=== PATIENT | female | born 1955 | race Caucasian/White ===

== ENCOUNTER 2020-01-14 12:39 | Outpatient (REF) | payer OTHER, SELFPAY ==
[2020-01-14 14:13] LABS: Vitamin B12 326 pg/mL (200-900)
== END 2020-01-14 12:40 | disposition home or self-care (01) ==
LOC: HO.LAB 12:39
PROVIDERS: PCP Internal Medicine; Visit Provider Psychiatry & Neurology Neurology
DX: G31.84 Mild cognitive impairment of uncertain or unknown etiology (principal)
CPT/HCPCS: 82607

== ENCOUNTER 2024-10-13 12:43 | Emergency (ER) | payer BC, SELFPAY ==
--- NOTE | ~2024-10-13 | CT_ITS ---
EXAMINATION: CT HEAD AND FACIAL BONES WITHOUT CONTRAST CLINICAL INFORMATION: Left periorbital hematoma after trauma. Rule out fracture. COMPARISON: CT head 10/16/2008. TECHNIQUE: Contiguous axial imaging was performed from the skull base to vertex, as well as the maxillofacial bones/mandible without intravenous administration of contrast. Multiplanar reformatted imaging was constructed from the axial data set. This CT examination was performed using dose optimization techniques as appropriate, variously including the following: *Automated exposure control *Adjustment of mA and/or kV according to patient size (this includes techniques or standardized protocols for targeted exams where dose is matched to indication/reason for exam; i.e. extremities or head) *Use of iterative reconstruction technique CT HEAD: There is a small right parafalcine subdural hematoma abutting the anterior falx measuring 6 mm in maximal thickness. This involves the anterior one half of the falx. No significant associated mass effect, sulcal effacement, or midline shift. There is trace left frontal subarachnoid hemorrhage, barely perceptible but present. There is a small amount of subarachnoid hemorrhage in the right sylvian fissure. There is no additional intracranial hemorrhage or extra-axial fluid collection. No CT evidence of acute territorial infarct. Ventricles, sulci, and cisterns are normal in size and configuration for patient age. No hydrocephalus. Negative hyperdense MCA sign. Negative insular ribbon sign. Mild supratentorial periventricular white matter hypodensities in keeping with small vessel ischemic changes. Vertebrobasilar dolichoectasia. Calcification of the carotid siphons and V4 segments of the ICAs. Normal pituitary. Globes and orbital contents image normally. There is left periorbital and left frontal scalp soft tissue swelling with a small left frontal scalp hematoma. The calvarium and skull base are intact without fracture. CT MAXILLOFACIAL BONES: The mandible is intact without fracture. The TM joints are normally oriented. The nasal bones, nasal process, maxilla, orbits, zygomatic arches, pterygoid plates, and sphenoid bone are intact without fracture. No significant nasal septal deviation. Paranasal sinuses are normally pneumatized throughout. No paranasal sinus fractures. The mastoids and tympanic cavities are normally aerated. Imaged maxillofacial/neck soft tissues appear normal. CT/CT facial bones wo IV con IMPRESSION: CT HEAD: 1. Small, 6 mm right parafalcine subdural hematoma involving the anterior one half of the falx. No associated mass effect or midline shift. 2. Trace subarachnoid hemorrhage in the left frontal sulci and small amount in the right sylvian fissure. 3. No gross hypoattenuating contusive injury. 4. No calvarial or skull base fracture. CT FACIAL BONES: 1. There is no maxillofacial or orbital fracture identified. 2. There is left periorbital preseptal soft tissue swelling and a small scalp hematoma overlying the left frontal bone. This critical result was discussed with Dr. Genao of the [facility] at 3:34 PM, 10/13/2024. It was ascertained that the content and urgency of the report was understood at the time of direct communication. Electronically signed by: Grady Swann MD 10/13/2024 03:40 PM EDT
--- NOTE | ~2024-10-13 | CT_ITS ---
EXAMINATION: CT CERVICAL SPINE WITHOUT CONTRAST CLINICAL INFORMATION: Trauma COMPARISON: None available. TECHNIQUE: Axial imaging was performed from the base of the skull through T2 without IV contrast. Coronal and sagittal reformatted images were generated from the original axial data set. ALARA: The examination used one or more of the following radiation dose reduction techniques: Automated exposure control, iterative reconstruction, and/or adjustment of mA and/or KV. DLP: 1141 mGY*cm FINDINGS: There is no prevertebral soft tissue edema. There is reversal cervical lordosis. There are osteophytes involving left greater than right atlanto-occipital articulation. C1-C2: There are severe degenerative change of the anterior C1-C2 articulation with chronic bony fragment and abutment with the base of clivus. There is 3 mm gap through the anterior C1 ring appears mostly corticated. C2-C3: Mild to moderate facet osteoarthritis C3-C4: There is grade 1 anterolisthesis. Mild to moderate facet osteoarthritis C4-C5: Severe degenerative endplate changes with severe disc space narrowing and endplate osteophytes. There are uncovertebral osteophytes. Mild facet degeneration. C5-C6: There is severe disc space narrowing with degenerative endplate changes and endplate and uncovertebral osteophytes. There is mild facet degeneration. C6-7: There is severe disc space narrowing with degenerative changes and endplate osteophytes. There are uncovertebral osteophytes. Minimal facet arthropathy. C7-T1: There is minimal grade 1 anterolisthesis and moderate bilateral facet osteoarthritis. There is mild centrilobular emphysema in the lung apexes. Soft tissues are unremarkable. CT/CT cervical spine wo IV con IMPRESSION: Anterior C1 fracture, probably chronic with nonunion. No other sign of C1 fracture. Correlate with history. There is extensive degenerative changes at the anterior C1-C2 articulation, chronic abutment with clivus, and no soft tissue swelling. Reversal cervical lordosis and severe degenerative disc disease C4-5, C5-6, and C6-7. Electronically signed by: Aravind Morales MD 10/13/2024 03:22 PM EDT
[2024-10-13 12:51] VITALS: BP 133/84; BP 137/88; PULSE 100; PULSE 90; RESP 14; TEMP 36.5; O2SAT 100; O2SAT 98; BMI 19.3
[2024-10-13 13:13] LABS: MANUAL DIFF FLAG NO
--- NOTE | 2024-10-13 13:16 | PC.NURSE ---
patient presents to the ED after sustaining a fall last night, states she does not know of she loss consciousness. patient states she was able to get herself off the floor and took tylenol before going back to bed. patient noted to have left sided periorbital hematoma, patient unable to open left eye. patient is on blood thinners, denies any pain. patient states she took tylenol prior to EMS coming. patient is alert and oriented x4.
[2024-10-13 13:17] LABS: Hematocrit 37.4 % (37.0-47.0); Hemoglobin 12.8 g/dl (12.0-16.0); Imm Gran Abs Auto 0.02 X10*3/uL (0.00-0.03); Imm Gran Pct Auto 0.2 % (0.0-0.4); Lymphocytes Absolute Auto 1.0 X10*3/uL (1.2-4.9); Mean Corpuscular HGB Conc 34.2 g/dl (31.0-35.0); Mean Corpuscular Hemoglobin 31.1 pg (27.0-33.0); Mean Corpuscular Volume 91.0 fL (80.0-98.0); NRBC Abs Auto 0.000 X10*3/uL (0.0-0.012); NRBC Pct Auto 0.0 /100WBC (0.0-0.2); Platelet Count 323 X10*3/uL (160-400); Red Blood Count 4.11 X10*6/uL (4.20-5.50); White Blood Count 8.7 X10*3/uL (4.8-10.8)
[2024-10-13 13:30] LABS: Alanine Aminotransferase 18 U/L (0-31); Albumin Level 4.6 g/dL (3.5-5.0); Alkaline Phosphatase 94 U/L (39-117); Anion Gap 14 (12-20); Aspartate Amino Transferase 32 U/L (5-31); Blood Urea Nitrogen 16 mg/dL (9-16); Calcium 9.1 mg/dL (8.4-10.2); Carbon Dioxide 24 mmol/L (22-29); Chloride 112 mmol/L (96-108); Creatinine Clr Calc Pharmacy 70.0; Estimated Glomerular Filt Rate > 60; Potassium 3.8 mmol/L (3.3-5.1); Sodium 146 mmol/L (135-145); Total Protein 7.1 g/dL (6.5-8.0)
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
--- NOTE | 2024-10-13 13:41 | ECG_ITS ---
Test Reason : FALL Blood Pressure : */* mmHG Vent. Rate : 85 BPM Atrial Rate : 85 BPM P-R Int : 146 ms QRS Dur : 74 ms QT Int : 386 ms P-R-T Axes : 84 42 68 degrees QTcB Int : 459 ms Normal sinus rhythm Normal ECG When compared with ECG of 16-Oct-2008 09:31, MANUAL COMPARISON REQUIRED PREVIOUS ECG IS INCOMPATIBLE Referred By: Galileo Genao Electronically Signed By: NIMO AMAYA MD
[2024-10-13 13:53] VITALS: BP 135/72; PULSE 90; RESP 17; O2SAT 99
--- OUTSIDE RECORDS SUMMARY | 2024-10-13 14:01 | XMS_ITS | Clinical Summary ---
Author Organization [facility] [address] [facility] Address [address] [place] [phone] Phone Care Team Providers Care Social Welfare Administrator Name Role Phone Debra Ortiz MD Primary Care Prov ider Allergies No known active allergies Medications B complex tablet Take 1 Tablet by mouth daily. Active calcium carbonate-vitam in D3 600 mg-5 mcg (200 unit) per tablet Take by mouth. Active propranoloL (INDERAL) 20 mg tablet TAKE 1 TABLET BY MOUTH EVERYDAY AT BEDTIME 90 tablet 1 04/17/2024 Active atorvastatin (LIPITOR) 40 mg tablet TAKE 1 TABLET BY MOUTH EVERY DAY 90 tablet 1 04/21/2024 Active clopidogreL (PLAVIX) 75 mg tablet TAKE 1 TABLET BY MOUTH EVERY DAY 90 tablet 1 04/21/2024 Active lisinopriL (PRINIVIL,ZESTR IL) 10 mg tablet TAKE 1 TABLET BY MOUTH EVERY DAY 90 tablet 1 05/13/2024 Active Active Problems Problem Noted Date Diagnosed Date History of CVA (cerebrovascular accident) 2024 Osteopenia of multiple sites 03/22/2020 Primary osteoarthritis involving multiple joints 03/22/2020 Vertebrobasilar dolichoectasia 01/09/2019 Neck mass 11/22/2010 Tinnitus 07/06/2009 Hypercholesteremia 02/28/2007 Overview (02/12/2024): Borderline 02/21, still elevated 2007 and 06/24--rec med Essential hypertension, benign 10/13/2005 Immunizations Name Administration Dates Next Due Influenza Quadravalent, MDCK , 0.5ml, preservative free (Flucelvax) 6mo and older 01/02/2018 Influenza Quadravalent, MDCK , 0.5ml, with preservative (Flucelvax) 6mo and older 12/14/2019,01/06/2019,02/05/2017 Influenza trivalent, 0.5mL ( Fluad) 65yo and older 12/16/2023,02/17/2023,01/03/2022,2020 Influenza trivalent, 0.5mL, preservative free (Fluarix; FluLaval; Fluzone) ages 6mo and older (Afluria) 3 years and older 12/14/2019,01/06/2019,03/06/2016,2013,04/14/2013,02/28/2012,12/05/2010,0 03/30/2010,02/21/2009 Influenza, Unspecified 01/04/2021 Pneumococcal conjugate 20 va lent (Prevnar 20, PCV 20) 2mo and older 04/04/2023 Respiratory syncytial virus (RSV), unspecified 04/06/2023 Tdap Tetanus diptheria acell ular pertussis (Boostrix; Adacel) 7yo and older 03/22/2020,03/30/2010 Zoster recombinant (Shingrix ) 19yo and older 01/26/2020,11/17/2019 Surgical History Surgery Date Site/Laterality Comments SECTION PROCEDURE: HISTORICAL DELIVERY; COMMENT: x1 APPENDECTOMY PROCEDURE: HISTORICAL APPENDECTOMY HYSTERECTOMY 02/18 PROCEDURE: HISTORICAL HYSTERECTOMY; COMMENT: with BSO; menometrorrhagia/fibroids COLONOSCOPY 01/01/2017 PROCEDURE: OUTSIDE COLONOSCOPY; COMMENT: inflammatory polyp and hemorrhoids; repeat in 10 yrs under propofol Medical History Medical History Date Comments Essential hypertension, benign D X:Essential hypertension, benign CVA (cerebral infarction) 10/21/2008 DX:CVA (cerebral infarction) History of colonoscopy 07/20/2005 DX:Histor y of colonoscopy; COMMENT: neg Dr Romo Other specified personal his tory presenting hazards to health(V15.89) DX:Other specifie d personal history presenting hazards to health(V15.89); COMMENT: cervical 39 yrs ago Primary osteoarthritis invol ving multiple joints 03/22/2020 DX:Primary osteoarthritis in volving multiple joints Family History Medical History Relation Name Comments Dementia Brother No Known Problems Daughter Dementia Father No Known Problems Maternal Grandfather Lung cancer Maternal Grandmother Breast cancer Mother 80's Hyperlipidemia Mother Hypertension Mother Stroke Mother No Known Problems Other Lung cancer Paternal Grandfather No Known Problems Paternal Grandmother No Known Problems Sister Cancer of Small Bowel Neg Hx Colon cancer Neg Hx Kidney cancer Neg Hx Ovarian cancer Neg Hx Pancreatic cancer Neg Hx Uterine cancer Neg Hx Relation Name Status Comments Brother Alive Daughter Alive Father Alive Maternal Grandfather Maternal Grandmother Mother Alive Other Paternal Grandfather Paternal Grandmother Sister Social History Tobacco Use Types Packs/Day Years Used Date Smoking Tobacco: Former Cigarettes 1 10 0 03/18/1969 - 03/18/1979 Smokeless Tobacco: Never Tobacco Cessation:Counseling Given: Not Answered Alcohol Use Standard Drinks/Week Comments Yes 0 (1 standard drink = 0.6 oz pur e alcohol) Comments No Sex and Gender Information Value Date Recorded Sex Assigned at Not on file Legal Sex Female 3:14 AM EST Gender Identity Not on file Sexual Orientation Not on file Obstetrics History Para Term AB IAB SAB Ectopic Multiple Livin g Live Births 1 Date Outcome GA Total Labor Labor/2nd/3rd Weight Sex Type Anes PTL Marichuy A1 A5 Name Clin Term Last Filed Vital Signs Vital Sign Reading Time Taken Comments Blood Pressure 110/60 04/15/2024 10:53 AM EST Pulse 84 04/15/2024 10:33 AM EST Temperature 36.4 C (97.6 F) 04/15/2024 10:33 AM EST Respiratory Rate - - Oxygen Saturation - - Inhaled Oxygen Concentration - - Weight 54 kg (119 lb) 04/15/2024 10:33 AM EST Height 162.6 cm (5' 4 ) 04/15/2024 10:33 AM EST Body Mass Index 20.43 04/15/2024 10:33 AM EST Plan of Treatment Upcoming Encounters Date Type Department Care Team (Late st Contact Info) Description 10/29/2024 11:15 AM EDT Office Visit Adult Medicine [facility] [address] [place] [id number] Lynne Vega PA [address] [place] [address] 02/04/2025 11:00 AM EST Appointment Radiology Department - [address] [phone] Health Maintenance Due Date Last Done Comments Falls Risk Assessment 02/24/2022 Medicare Annual Wellness Visit 02/24/2022 Social Influencers of Health Screening 02/24/2022 Depression Screening 03/18/2024 COVID-19 Vaccine ( season) 2024 12/16/2023, 02/17/2023, 01/03/2022, Additional history exists Influenza Vaccine (#1) 2024 , 02/17/2023, 01/03/2022, Additional history exists Hypertension/CHF/CAD Annual BMP Blood Test 04/15/2025 04/15/2024, 10/14/2023, 10/14/2023 Breast Cancer Screening 01/28/2026 01/29/20 24, 01/18/2023, 01/16/2022, Additional history exists Colorectal Cancer Screening: Colonoscopy 01/01/2027 01/01/2017 Cholesterol Screening (Lipid Panel) 10/13/2028 10/14/2023, 10/14/2023 DTaP,Tdap,and Td Vaccines (3 - Td or Tdap) 03/22/2030 03/22/2020, 03/30/2010 RSV Immunization Adult Patients (1 - 1-dose 75+ series) 06/14/2030 04/06/2023 Osteoporosis Screening (Bone Density Screening) 01/18/2033 01/18/2023, 02/26/2020, 07/11/2017 Hepatitis C Screening Completed 11/17/1999 Zoster Vaccines Completed 01/26/2020, 11/17/2019 Pneumococcal Vaccine: 50+ Years Completed 04/04/2023 RSV Immunization Patients Under 20 months Aged Out 04/06/2023 No longer eligible based on patient's age to complete this topic HIB Vaccines Aged Out No longer eligi ble based on patient's age to complete this topic HPV Vaccines Aged Out No longer eligi ble based on patient's age to complete this topic Hepatitis A Vaccines Aged Out No long er eligible based on patient's age to complete this topic Hepatitis B Vaccines Aged Out No long er eligible based on patient's age to complete this topic IPV Vaccines Aged Out No longer eligi ble based on patient's age to complete this topic MMR Vaccines Aged Out No longer eligi ble based on patient's age to complete this topic Meningococcal ACWY Vaccine Aged Out N o longer eligible based on patient's age to complete this topic Meningococcal B Vaccine Aged Out No l onger eligible based on patient's age to complete this topic Varicella Vaccines Aged Out No longer eligible based on patient's age to complete this topic Procedures Procedure Name Priority Date/Time Associated Diagnosis Comments BASIC METABOLIC PANEL Routine 04/15/2024 11:38 AM EST Essential hypertension, benign MG MAMMO DIGITAL SCREENING W GOOD BILAT Routine 01/29/2024 8:30 AM EST Encounter for screening mammogram for breast cancer LIPID PANEL Routine 10/14/2023 DXA BONE DENSITY STUDY 1+ SITS AXIAL SKEL Routine 01/18/2023 10:32 AM EDT Other specified disorders of bone density and structure, multiple sites COLONOSCOPY Routine 01/01/2017 HEPATITIS C SCREENING Routine 11/17/1999 from Last 3 Months or Most Recently Relevant to Health Maintenance Results * (ABNORMAL) Basic metabolic panel (04/15/2024 11:38 AM EST) Sodium 140 133 - 145 mmol/L LAB CHEMISTRY METHOD 04/15/2024 2:52 PM EST [facility] Potassium 4.2 3.5 - 5.5 mmol/L LAB CHEMISTRY METHOD 04/15/2024 2:52 PM EST [facility] Chloride 107 96 - 110 mmol/L LAB CHEMISTRY METHOD 04/15/2024 2:52 PM EST [facility] CO2 27 21 - 32 mmol/L LAB CHEMISTRY METHOD 04/15/2024 2:52 PM EST [facility] Anion Gap 6 3 - 11 LAB CHEMISTRY METHOD 04/15/2024 2:52 PM EST [facility] Glucose 101(H) 70 - 100 mg/dL LAB CHEMISTRY METHOD 04/15/2024 2:52 PM [facility] BUN 16 5 - 25 mg/dL LAB CHEMISTRY METHOD 04/15/2024 2:52 PM [facility] Creatinine 0.66 0.50 - 1.10 mg/dL LAB CHEMISTRY METHOD 04/15/2024 2:52 PM [facility] eGFR 96 >=60 mL/min/1. 73m2 LAB CHEMISTRY METHOD 04/15/2024 2:52 PM [facility] Comment:Calculation based on the Chronic Kidney Disease Epidemiology Collaboration (CKD-EPI) equation refit without adjustment for race. BUN/Creatinine Ratio 24.2 LAB CHEMISTRY METHOD 04/15/2024 2:52 PM [facility] Calcium 9.7 8.5 - 10.5 mg/dL LAB CHEMISTRY METHOD 04/15/2024 2:52 PM [facility] Blood Venous blood specimen / Unknown Venipuncture / Unknown 04/15/2024 11:38 AM EST 04/15/2024 11:38 AM EST us Lynne GUTIERREZ LAB BLOOD ORDERABLES Final Result [facility] [address] [place] [address], * MG Mammo Digital Screening w Good bilat (01/29/2024 8:30 AM EST) Anatomical Region Laterality Modality Breast Bilateral Mammography 01/29/2024 10:5 7 AM EST Impressions 01/29/2024 10:59 AM EST Stable mammographic appearance of the breasts. No evidence of malignancy is seen. A negative mammogram in the presence of a clinically suspicious palpable abnormality does not preclude the possibility of malignancy or alter the indications for biopsy. BI-RADS: Category 1: Negative RECOMMENDATION(S): 1: Routine screening mammogram BILATERAL in 1 year. Mammo Location: [facility], [address] [place] [address], [id number], . -------- FINAL REPORT -------- Dictated By: Yanira Porter Dictated Date: 01/29/2024 10:57 ET Assigned Physician: Yanira Porter Reviewed and Electronically Signed By: Yanira Porter Signed Date: 01/29/2024 10:59 ET Workstation ID: [id number] Transcribed By: Self Edit Transcribed Date: 01/29/2024 10:57 ET Narrative 01/29/2024 10:59 AM EST EXAM: MAMMO DIGITAL SCREENING W GOOD BILAT EXAM DATE: 01/29/2024 8:22 AM HISTORY: Breast cancer screen, avg risk, asymptomatic (Age => 40y) COMPARISON: Mammograms dating back to 12/28/2019 with most recent of 01/18/2023. TECHNIQUE: Bilateral digital breast tomosynthesis was performed in the CC and MLO projections. Computer aided detection with [employer] AI 3D 3.1 was employed. TISSUE DENSITY: b. There are scattered areas of fibroglandular density. FINDINGS: No suspicious masses, grouped microcalcifications, or areas of architectural distortion are seen. The skin and vascularity are unremarkable. Procedure Note Yanira Porter MD - 01/29/2024 EXAM: MAMMO DIGITAL SCREENING W GOOD BILAT EXAM DATE: 01/29/2024 8:22 AM HISTORY: Breast cancer screen, avg risk, asymptomatic (Age => 40y) COMPARISON: Mammograms dating back to 12/28/2019 with most recent of01/18/2023. TECHNIQUE: Bilateral digital breast tomosynthesis was performed in the CCand MLO projections. Computer aided detection with iCAD [employer] AI 3D 3.1was employed. TISSUE DENSITY: b. There are scattered areas of fibroglandular density. FINDINGS: No suspicious masses, grouped microcalcifications, or areas ofarchitectural distortion are seen. The skin and vascularity areunremarkable. IMPRESSION: Stable mammographic appearance of the breasts. No evidence of malignancyis seen. A negative mammogram in the presence of a clinically suspicious palpableabnormality does not preclude the possibility of malignancy or alter theindications for biopsy. BI-RADS: Category 1: Negative RECOMMENDATION(S): 1: Routine screening mammogram BILATERAL in 1 year. Mammo Location: [facility], [address] [place] [address], [id number], . -------- FINAL REPORT -------- Dictated By: Yanira Porter Dictated Date: 01/29/2024 10:57 ET Assigned Physician: Yanira Porter Reviewed and Electronically Signed By: Yanira Porter Signed Date: 01/29/2024 10:59 ET Workstation ID: [id number] Transcribed By: Self Edit Transcribed Date: 01/29/2024 10:57 ET Debra Ortiz MD IMG BI PROCEDURES Final Result * Lipid panel (10/14/2023) LDL/HDL Ratio 2 0 - 4 Triglycerides 115 0 - 150 mg/dL Cholesterol 145 0 - 200 mg/dL HDL 71 >=40 mg/dL LDL Cholesterol 51 0 - 100 mg/dL Blood Venous blood specimen / Unknown Historical Provider LAB BLOOD ORDERABLES Sheyla l Result * DXA BONE DENSITY STUDY 1+ SITS AXIAL SKEL (01/18/2023 10:32 AM EDT) Anatomical Region Laterality Modality Bone Densitometr y 10/02/2022 2:18 PM EDT Narrative 01/18/2023 4:13 PM EDT BONE DENSITY Lumbar Spine T-score is -1.8 (SD relative to 20-29 y/o adult) Z-score is +0.1 (SD relative to age matched peers) This is consistent with osteopenia by criteria defined by the WHO. Left Hip T-score is -2.4 Z-score is -0.7 This is consistent with osteopenia by criteria defined by the WHO. . Impression: Based on the World Health Organization criteria, Jillian Shaver should be classified as having osteopenia. This patient has a <0.1% risk of major osteoporotic fracture and a <0.1% risk of hip fracture over the next 10 years. (World Health Organization Fracture Risk Assessment) [facility] Department of Internal Medicine recommends using National Osteoporosis Foundation (NOF) guidelines in treatment decisions related to osteoporosis. NOF guidelines suggest considering treatment for postmenopausal women and men aged 50 or older presenting with the following: History of hip or vertebral fracture. T-score less than or equal to -2.5 (DXA) at the femoral neck, total hip, or spine, after appropriate evaluation to exclude secondary causes. Low bone mass (T-score between -1.0 and -2.5 at the femoral neck or spine) AND a 10-year probability of a hip fracture greater than or equal to 3% OR a 10-year probability of a major osteoporosis-related fracture greater than or equal to 20% based on the [place]-adapted WHO algorithm Please note that all treatment decisions require clinical judgment and consideration of individual patient factors, including patient preferences, co-morbidities, previous drug use, risk factors not captured in the FRAX model (e.g., frailty, falls, vitamin D deficiency, increased bone turnover, interval significant decline in bone density) and possible under- or over-estimation of fracture risk by FRAX. Procedure Note Kianna Tripp MD - 04/23/2023 BONE DENSITY Lumbar Spine T-score is -1.8 (SD relative to 20-29 y/o adult) Z-score is +0.1 (SD relative to age matched peers) This is consistent with osteopenia by criteria defined by the WHO. Left Hip T-score is -2.4 Z-score is -0.7 This is consistent with osteopenia by criteria defined by the WHO. . Impression: Based on the World Health Organization criteria, Jlilian Shaver shouldbe classified as having osteopenia. This patient has a <0.1% risk of majorosteoporotic fracture and a <0.1% risk of hip fracture over the next 10years. (World Health Organization Fracture Risk Assessment) [facility] Department of Internal Medicine recommendsusing National Osteoporosis Foundation (NOF) guidelines in treatmentdecisions related to osteoporosis. NOF guidelines suggest consideringtreatment for postmenopausal women and men aged 50 or older presentingwith the following: History of hip or vertebral fracture. T-score less than or equal to -2.5 (DXA) at the femoral neck, total hip,or spine, after appropriate evaluation to exclude secondary causes. Low bone mass (T-score between -1.0 and -2.5 at the femoral neck or spine)AND a 10-year probability of a hip fracture greater than or equal to 3% ORa 10-year probability of a major osteoporosis-related fracture greaterthan or equal to 20% based on the [place]-adapted WHO algorithm Please note that all treatment decisions require clinical judgment andconsideration of individual patient factors, including patientpreferences, co-morbidities, previous drug use, risk factors not capturedin the FRAX model (e.g., frailty, falls, vitamin D deficiency, increasedbone turnover, interval significant decline in bone density) and possibleunder- or over-estimation of fracture risk by FRAX. Lynne GUTIERREZ IMG DXA PROCEDURES Final R esult * Colonoscopy (01/01/2017) [facility] Colonoscopy Abstracted, No interpretation Anatomical Region Laterality Modality Other Historical Provider HEALTH MAINTENANCE Final Result * Hepatitis C Screening (11/17/1999) [facility] Hepatitis C Screening Abstracted Historical Provider HEALTH MAINTENANCE Final Result from Last 3 Months or Most Recently Relevant to Health Maintenance Insurance [address] [place] [address] [employer] - [place] MEDICARE ADVANTAGE Care Teams Social Welfare Administrator Relationship Specialty Start Date End Date Debra Ortiz MD [address] [place] [id number] PCP - General Internal Medicine 10/10/20
--- OUTSIDE RECORDS SUMMARY | 2024-10-13 14:01 | XMS_ITS ---
Author Name [facility] Organization Unknown Care Team Organization Name Specialty Phone Email Start Date End Da te [facility] EMILIANO DAVIS Primary Care 01/23/2022 11/04/2023
[2024-10-13 14:39] LABS: Troponin-I High Sensitivity 6.5 ng/L (<3.5-17.0)
[2024-10-13 16:20] VITALS: BP 127/70; PULSE 94; RESP 16; TEMP 36.9; O2SAT 98
--- NOTE | 2024-10-13 16:54 | PC.NURSE ---
report given to ems attempted to call [place] [phone] for report
--- NOTE | 2024-10-13 16:57 | PC.NURSE ---
report given to flow box melva suarez
== END 2024-10-13 16:58 | disposition short-term general hospital (02) ==
PROVIDERS: Emergency Provider Emergency Medicine; PCP Physician Assistant Medical
DX: S06.6XAA Traumatic subarachnoid hemorrhage with loss of consciousness status unknown, initial encounter (principal); S06.5XAA Traumatic subdural hemorrhage with loss of consciousness status unknown, initial encounter; S00.12XA Contusion of left eyelid and periocular area, initial encounter; S12.000A Unspecified displaced fracture of first cervical vertebra, initial encounter for closed fracture; W17.89XA Other fall from one level to another, initial encounter; Y93.89 Activity, other specified; Y92.9 Unspecified place or not applicable; Y99.9 Unspecified external cause status
CPT/HCPCS: 36415; 70450; 70486; 72125; 80053; 82550; 84484; 85025; 93005; 99284; 99285

== ENCOUNTER → 2024-10-13 13:36 | Outpatient (BNV) | payer BC, SELFPAY | PROVIDERS: Emergency Provider Emergency Medicine; PCP Physician Assistant Medical; Visit Provider Radiology Diagnostic Radiology | DX: M50.321 Other cervical disc degeneration at C4-C5 level (principal); S00.12XA Contusion of left eyelid and periocular area, initial encounter; S06.5X0A Traumatic subdural hemorrhage without loss of consciousness, initial encounter | CPT/HCPCS: 70450; 70486; 72125 ==

== ENCOUNTER → 2024-10-13 13:41 | Outpatient (BNV) | payer BC, SELFPAY | PROVIDERS: Emergency Provider Emergency Medicine; PCP Physician Assistant Medical; Visit Provider Internal Medicine Cardiovascular Disease | DX: Z13.6 Encounter for screening for cardiovascular disorders (principal) | CPT/HCPCS: 93010 ==